=== PATIENT | female | born 1955 | race African-American/Black ===

== ENCOUNTER 2020-04-15 11:09 | Observation (INO) ==
[2020-04-15 12:26] LABS: Basophils % 0.3 % (0.0-0.8); Eosinophils % 0.3 % (0.00-10.9); Hematocrit 42.9 VOL% (35.7-47.0); Immature Granulocytes % 0.6 %; Immature Granulocytes Absolute 0.02 #; Lymphocytes # 1.3 10*3/uL (1.4-4.0); Lymphocytes % 37.2 % (21.3-54.2); Mean Corpuscular HGB Conc 32.6 GM/DL (32-36); Mean Corpuscular Volume 78.9 FL (87-102); Mean Platelet Volume 10.8 FL (9.6-12.0); Monocytes % 9.9 % (1.7-12.7); Neutrophils % 51.7 % (38.7-73.9); Platelet Count 169 T/CUMM (130-400); Red Blood Count 5.44 MC/CUMM (3.8-5.5); Red Cell Distribution Width 13.6 % (9.3-17.3); White Blood Count 3.5 T/CUMM (4-12)
[2020-04-15] MEDS ORDERED: SODIUM CHLORIDE 0.9% 1,000 ML IV STA (12:37)
[2020-04-15] MEDS ORDERED: ONDANSETRON 4 MG/2 ML VIAL IV STA (12:37)
[2020-04-15 12:47] LABS: PT Patient Result 10.8 SECS (9.8-11.9)
[2020-04-15 12:58] LABS: Alanine Aminotransferase 28 U/L (13-56); Alkaline Phosphatase 69 U/L (45-117); Aspartate Amino Transferase 46 U/L (0-37); Bilirubin,Total < 0.39 MG/DL (0.2-1.0); Blood Urea Nitrogen 7 MG/DL (7-18); Calcium 9.6 MG/DL (8.5-10.1); Estimated Glom Filtration Rate 103 ML/MIN; Ferritin 222.6 ng/ml (8-252); Glucose 95 MG/DL (74-106); Osmolality,Calculated 274.5 MOS/KG (273-304); Total Protein 7.3 G/DL (6.4-8.3)
[2020-04-15 13:13] LABS: Band Neutrophils 4 % (0-10); Lymphocytes 38 % (20-55); Platelet Estimate Normal; Segmented Neutrophils 47 % (50-85); Total Cells Counted 100
[2020-04-15 13:14] LABS: Anisocytosis 1+
[2020-04-15 14:10] LABS: Sedimentation Rate-Westergren 19 MM/HR (0-30)
[2020-04-15] MEDS ORDERED: GLUCAGON 1 MG VIAL IM PRN (16:04)
[2020-04-15] MEDS ORDERED: ACETAMINOPHEN 325 MG TABLET PO PRN (16:04)
[2020-04-15] MEDS ORDERED: DEXTROSE 50% 25 GM/50 ML VIAL IV PRN (16:04)
[2020-04-15] MEDS ORDERED: ONDANSETRON 4 MG/2 ML VIAL IV PRN (16:04)
[2020-04-15] MEDS ORDERED: AZITHROMYCIN 250 MG TABLET PO STA (16:20)
[2020-04-15] MEDS ORDERED: SODIUM CHLORIDE 0.9% 100 ML IV ONE (16:43)
[2020-04-15] MEDS: cefTRIAXone 1,000 MG in SYRINGE 1 EACH IV SCH (16:47)
[2020-04-15] MEDS: ENOXAPARIN 40 MG/0.4 ML SYRINGE SUBCUT SCH (17:47)
[2020-04-15] MEDS: DEXAMETHASONE 4 MG TABLET PO SCH (17:47)
[2020-04-15] MEDS: SODIUM CHLORIDE 0.9% 1,000 ML IV SCH (17:47)
[2020-04-16] MEDS: SODIUM CHLORIDE 0.9% 1,000 ML IV SCH ×3 (06:01→21:31)
[2020-04-16 06:20] LABS: Hematocrit 41.8 VOL% (35.7-47.0); Hemoglobin 13.6 GM/DL (12.0-16.0); Immature Granulocytes % 0.7 %; Immature Granulocytes Absolute 0.01 #; Lymphocytes # 0.5 10*3/uL (1.4-4.0); Lymphocytes % 33.3 % (21.3-54.2); Mean Corpuscular HGB Conc 32.5 GM/DL (32-36); Mean Corpuscular Volume 78.7 FL (87-102); Mean Platelet Volume 11.2 FL (9.6-12.0); Monocytes % 5.6 % (1.7-12.7); Neutrophils % 60.4 % (38.7-73.9); Platelet Count 155 T/CUMM (130-400); Red Blood Count 5.31 MC/CUMM (3.8-5.5); Red Cell Distribution Width 13.4 % (9.3-17.3); White Blood Count 1.4 T/CUMM (4-12)
[2020-04-16 06:36] LABS: Calcium 9.4 MG/DL (8.5-10.1); Osmolality,Calculated 284.1 MOS/KG (273-304)
[2020-04-16 06:38] LABS: Ferritin 200.3 ng/ml (8-252)
[2020-04-16 06:56] LABS: Band Neutrophils 1 % (0-10); Lymphocytes 27 % (20-55); Microcytosis 1+; Platelet Estimate Normal; Segmented Neutrophils 67 % (50-85); Total Cells Counted 100
[2020-04-16] MEDS: PANTOPRAZOLE 40 MG TABLET PO SCH (08:51)
[2020-04-16] MEDS: amLODIPine 10 MG TABLET PO SCH (08:51)
[2020-04-16] MEDS: LEVOTHYROXINE 200 MCG TABLET PO SCH (08:51)
[2020-04-16] MEDS: AZITHROMYCIN 250 MG TABLET PO SCH (08:51)
[2020-04-16] MEDS: lisinopriL 10 MG TABLET PO SCH (08:51)
[2020-04-16] MEDS: DEXAMETHASONE 4 MG TABLET PO SCH (08:51)
[2020-04-16] MEDS ORDERED: BENZONATATE 100 MG CAPSULE PO PRN (13:34)
[2020-04-16] MEDS: POTASSIUM CHLORIDE 20 MEQ TABLET PO PRN ×2 (14:44→16:35)
[2020-04-16] MEDS: cefTRIAXone 1,000 MG in SYRINGE 1 EACH IV SCH (16:34)
[2020-04-16] MEDS: ENOXAPARIN 40 MG/0.4 ML SYRINGE SUBCUT SCH (18:17)
[2020-04-17 06:09] LABS: Immature Granulocytes % 0.8 %; Immature Granulocytes Absolute 0.03 #; Lymphocytes # 0.7 10*3/uL (1.4-4.0); Lymphocytes % 18.3 % (21.3-54.2); Mean Corpuscular HGB Conc 33.3 GM/DL (32-36); Mean Corpuscular Volume 76.5 FL (87-102); Mean Platelet Volume 11.1 FL (9.6-12.0); Monocytes % 14.2 % (1.7-12.7); Neutrophils % 66.7 % (38.7-73.9); Red Blood Count 5.49 MC/CUMM (3.8-5.5); Red Cell Distribution Width 13.2 % (9.3-17.3); White Blood Count 3.7 T/CUMM (4-12)
[2020-04-17 06:14] LABS: Platelet Count 198 T/CUMM (130-400)
[2020-04-17 06:41] LABS: Calcium 9.2 MG/DL (8.5-10.1); Osmolality,Calculated 285.8 MOS/KG (273-304)
[2020-04-17 06:43] LABS: Ferritin 242.2 ng/ml (8-252)
[2020-04-17 06:52] LABS: Hypochromasia 1+; Microcytosis 1+
[2020-04-17 06:53] LABS: Platelet Estimate Adequate
[2020-04-17 07:49] VITALS: BP 147/55
[2020-04-17] MEDS: amLODIPine 10 MG TABLET PO SCH (08:53)
[2020-04-17] MEDS: DEXAMETHASONE 4 MG TABLET PO SCH (08:53)
[2020-04-17] MEDS: lisinopriL 10 MG TABLET PO SCH (08:53)
[2020-04-17] MEDS: LEVOTHYROXINE 200 MCG TABLET PO SCH (08:53)
[2020-04-17] MEDS: AZITHROMYCIN 250 MG TABLET PO SCH (08:53)
[2020-04-17] MEDS: PANTOPRAZOLE 40 MG TABLET PO SCH (08:53)
== END 2020-04-17 11:08 | disposition home or self-care (01) ==
LOC: N.ED 11:09 → N.EDINP 11:09 → N.2E 17:16
PROVIDERS: ADMIT Hospitalist; ATTEND Hospitalist